=== PATIENT | male | born 1975 | race African-American/Black ===

== ENCOUNTER 2017-03-26 18:45 | Emergency (ER) | payer MEDICAID ==
[~2017-03-26] VITALS: Ht 182.9 cm; Wt 122.5 kg
[2017-03-26] MEDS ORDERED: cloNIDine HCL 0.1 MG TAB PO ONE (19:15)
[2017-03-26] MEDS ORDERED: LORazepam 2MG/ML-1ML VIAL IV ONE (21:15)
[2017-03-26] MEDS ORDERED: LABETALOL HCL 5 MG/ML ML 20ML VIAL IV ONE (21:15)
[2017-03-27] MEDS ORDERED: amLODIPine BESYLATE 5 MG TAB PO ONE (00:15)
[2017-03-27 01:00] VITALS: BP 166/105
[2017-03-27] MEDS ORDERED: cloNIDine HCL 0.1 MG TAB PO ONE (01:15)
== END 2017-03-27 01:32 | disposition home or self-care (01) ==
LOC: ER 18:48
DX: I11.0 Hypertensive heart disease with heart failure (principal); I50.9 Heart failure, unspecified; R06.02 Shortness of breath; Z76.0 Encounter for issue of repeat prescription
CPT/HCPCS: 96374; 96375; 99284; J2060

== ENCOUNTER 2017-05-16 19:26 | Inpatient (IN) | payer SELFPAY ==
[~2017-05-16] VITALS: Ht 185.4 cm; Wt 97.5 kg
[2017-05-16] MEDS ORDERED: cloNIDine HCL 0.1 MG TAB ONE (19:32)
[2017-05-16] MEDS ORDERED: cloNIDine HCL 0.1 MG TAB PO ONE (19:45)
[2017-05-17 02:41] LABS: Basophils # (auto) 0.1 uL; Basophils % (auto) 1.3 % (0.0-2.0); Eosinophils # (auto) 0.7 uL; Eosinophils % (auto) 6.2 % (0.0-7.0); Hemoglobin 13.5 g/dL (13.5-17.5); Lymphocytes # (auto) 2.2 uL; Lymphocytes % (auto) 19.1 % (10.0-50.0); Mean Corpuscular Hemoglobin 33.2 pg (28.0-32.0); Mean Corpuscular Hgb Conc. 33.8 g/dL (32.0-36.0); Mean Platelet Volume 8.7 fL (6.9-10.8); Monocytes # (auto) 0.7 uL; Monocytes % (auto) 5.8 % (0.0-12.0); Neutrophils # (auto) 7.6 uL; Neutrophils % (auto) 67.6 % (37.0-80.0); Platelet Count (auto) 330 10^3/uL (140-450); Red Cell Distribution Width 13.3 % (11.8-14.3); White Blood Cell 11.3 10^3/uL (4.4-10.8)
[2017-05-17 02:52] LABS: Albumin 3.5 g/dL (3.4-5.0); Calcium 9.1 mg/dL (8.5-10.1); Magnesium 2.2 mg/dL (1.6-2.6); Potassium 3.4 mmol/L (3.5-5.1)
[2017-05-17 02:54] LABS: BUN/Creatinine Ratio 10.4
[2017-05-17] MEDS ORDERED: FUROSEMIDE 40 MG/4 ML VIAL IV ONE (06:45)
[2017-05-17] MEDS ORDERED: HYDROcodone-ACET 5/325MG TAB PO PRN (07:45)
[2017-05-17] MEDS ORDERED: NITROGLYCERIN 0.4 MG SL TAB SL PRN (07:45)
[2017-05-17] MEDS ORDERED: ACETAMINOPHEN 325 MG TAB PO PRN (07:45)
[2017-05-17] MEDS ORDERED: TEMAZEPAM 15 MG CAP PO PRN (07:45)
[2017-05-17] MEDS ORDERED: ONDANSETRON HCL 4 MG/2 ML VIAL IV PRN (07:45)
[2017-05-17] MEDS ORDERED: cloNIDine HCL 0.1 MG TAB PO PRN (07:45)
[2017-05-17] MEDS ORDERED: MORPHINE SULF INJ 2 MG/ML SYRINGE 1ML IV PRN (07:45)
[2017-05-17] MEDS ORDERED: POTASSIUM CHL 20 Meq TABLET PO ONE (07:45)
[2017-05-17] MEDS ORDERED: amLODIPine BESYLATE 5 MG TAB PO ONE (08:00)
[2017-05-17] MEDS ORDERED: METOPROLOL TARTRATE 50 MG TAB PO ONE (08:00)
[2017-05-17 08:11] LABS: Cholesterol 166 mg/dL (< 200); HDL Cholesterol 33 mg/dL (40-59); LDL Cholesterol 126 mg/dL (< 100); Triglycerides 70 mg/dL (< 150)
[2017-05-17 09:11] VITALS: BP 212/136
[2017-05-17] MEDS ORDERED: LISINOPRIL 20 MG TAB PO SCH (10:00)
[2017-05-17] MEDS ORDERED: HCTZ 25 MG TAB PO SCH (10:00)
[2017-05-17] MEDS ORDERED: ENOXAPARIN SOD 40 MG/0.4 ML SYRINGE SC SCH (10:00)
[2017-05-17] MEDS ORDERED: FAMOTIDINE 20 MG TAB PO SCH (10:00)
[2017-05-17] MEDS ORDERED: FUROSEMIDE 20 MG TAB PO SCH (18:00)
[2017-05-17] MEDS ORDERED: METOPROLOL TARTRATE 50 MG TAB PO SCH (22:00)
[2017-05-18] MEDS ORDERED: amLODIPine BESYLATE 5 MG TAB PO SCH (10:00)
== END 2017-05-17 11:10 | disposition left against medical advice (07) | DRG 291 ==
LOC: ER 19:32 → TELE 19:33
PROVIDERS: ADMIT Nurse Practitioner; ATTEND Internal Medicine
DX: I13.0 Hypertensive heart and chronic kidney disease with heart failure and stage 1 through stage 4 chronic kidney disease, or unspecified chronic kidney disease (principal); I50.33 Acute on chronic diastolic (congestive) heart failure; E87.5 Hyperkalemia; I67.2 Cerebral atherosclerosis; I16.0 Hypertensive urgency; E66.9 Obesity, unspecified; F17.210 Nicotine dependence, cigarettes, uncomplicated; F12.90 Cannabis use, unspecified, uncomplicated; N18.2 Chronic kidney disease, stage 2 (mild); F41.9 Anxiety disorder, unspecified; Z68.28 Body mass index [BMI] 28.0-28.9, adult; Z91.19 Patient's noncompliance with other medical treatment and regimen
CPT/HCPCS: 36415; 70450; 71010; 80053; 80061; 83735; 84484; 85025; 93005; 94761; 96374

== ENCOUNTER → 2024-05-07 | Outpatient (CLI) | payer MEDICAID ==
[~2024-05-07] VITALS: Ht 185.4 cm; Wt 136.1 kg
[2024-05-07] MEDS: REGADENOSON 0.4 MG/5 ML SYRG IV ONE ×2 (09:26→09:37)
== END | disposition home or self-care (01) ==
LOC: XYW 08:02
PROVIDERS: ATTEND Nurse Practitioner
DX: I48.92 Unspecified atrial flutter (principal); I13.0 Hypertensive heart and chronic kidney disease with heart failure and stage 1 through stage 4 chronic kidney disease, or unspecified chronic kidney disease; N18.9 Chronic kidney disease, unspecified; I50.9 Heart failure, unspecified
CPT/HCPCS: 78452; 93017; A9500; J2785